=== PATIENT | male | born 1945 | race Caucasian/White ===

== ENCOUNTER → 2022-03-24 | Outpatient (CLI) | payer MEDICARE, OTHER, SELFPAY ==
--- NOTE | 2022-03-24 15:50 | MRI_ITS ---
STUDY: MR Spine Lumbar W/O Contrast 03/24/2022 7:11 PM REASON FOR EXAM: Male, 77 years old. Back pain pain TECHNIQUE: MR Spine Lumbar W/O Contrast Standardized fat and water weighted pulse sequences were obtained. COMPARISON: None FINDINGS: Cysts of both kidneys. No follow up required. Normal lumbar lordosis. There is no substantial scoliosis. Normal conus medullaris that terminates at the T12-L1. L1-2: Loss of intervertebral disc height. There is endplate spondylosis of the vertebral body. Normal central canal and intervertebral neuroforamina. There is bilateral facet arthropathy. Disc bulge. L2 superior endplate Schmorl''s node. L2-3: Loss of intervertebral disc height. There is endplate spondylosis of the vertebral body. Normal central canal and intervertebral neuroforamina. There is bilateral facet arthropathy. Disc bulge. L3-4: Loss of intervertebral disc height. There is endplate spondylosis of the vertebral body. Normal central canal and intervertebral neuroforamina. There is bilateral facet arthropathy. Disc bulge. L4-5: Loss of intervertebral disc height. There is endplate spondylosis of the vertebral body. Central disc herniation. Severe spinal stenosis. There is bilateral facet arthropathy. There is bilateral ligamentum flavum thickening. Disc desiccation. L5-S1: Loss of intervertebral disc height. There is endplate spondylosis of the vertebral body. There is bilateral facet arthropathy. Normal central canal and intervertebral neuroforamina. Normal visualized sacral ala. Normal visualized paraspinous soft tissue structures. MRI/Spine Lumbar (Routine) IMPRESSION: Multilevel degenerative changes, as described above. L4-5: Central disc herniation. Severe spinal stenosis. Electronically Signed: Ayan Araujo MD at 19:14 EDT Reading Location ID and State: [facility] / [place] , Service support ,
== END | disposition home or self-care (01) ==
LOC: MRI 15:50
PROVIDERS: PCP Family Medicine; Visit Provider Orthopaedic Surgery
DX: M51.36 Other intervertebral disc degeneration, lumbar region (principal)
CPT/HCPCS: 72148

== ENCOUNTER 2022-08-10 11:19 | Emergency (ER) | payer MEDICARE, OTHER, SELFPAY ==
[2022-08-10 11:20] VITALS: BP 124/108; PULSE 79; RESP 16; TEMP 36.2; O2SAT 98; BMI 23.6
--- NOTE | 2022-08-10 11:42 | EX.ED.DYSGE1 ---
HPI History of Present Illness Chief Complaint: Fall Informant: patient and spouse/S.O. Onset/Context/Timing Onset: Days (1 week ago) Current Severity: Mild Maximum Severity: Moderate Narrative Narrative: Patient presents secondary to hip pain after a fall 1 week ago. He has a history of Parkinson's. He leaned over to try to clean something up off the floor and lost his balance. He fell backwards. He is complaining of pain to his bilateral hips. He also complains of spasms in his low back. He did not strike his head. He had no loss of consciousness. He is on Eliquis. [facility] Medical History A-fib DDD (degenerative disc disease), lumbar Parkinson disease Spinal stenosis at L4-L5 level Home Medications apixaban 5 mg tablet (Eliquis) 5 tablet PO BID 03/23/22 [History Last Taken Unknown] carbidopa 25 mg-levodopa 100 mg tablet 2 ea PO TID 03/23/22 [History Last Taken Unknown] duloxetine 20 mg capsule,delayed release 30 cap PO DAILY 03/23/22 [History Last Taken Unknown] linaclotide 290 mcg capsule (Linzess) 290 mcg PO DAILY 03/23/22 [History Last Taken Unknown] memantine 10 mg tablet 10 tablet PO BID 03/23/22 [History Last Taken Unknown] tramadol 50 mg tablet 1 ea PO PRN PRN Pain 03/23/22 [History Last Taken Unknown] Lactobacillus acidophilus (Acidophilus capsule) 1,000 mmu cells PO DAILY 08/10/22 [History Last Taken Unknown] ascorbic acid (vitamin C) 100 mg tablet (Vitamin C) 100 mg PO DAILY 08/10/22 [History Last Taken Unknown] cholecalciferol (vitamin D3) 50 mcg (2,000 unit) capsule (Vitamin D3) 50 mcg PO DAILY 08/10/22 [History Last Taken Unknown] cyanocobalamin (vitamin B-12) 1,000 mcg tablet 1,000 mcg PO DAILY 08/10/22 [History Last Taken Unknown] lactulose 20 gram/30 mL oral solution 20 g PO DAILY 08/10/22 [History Last Taken Unknown] multivitamin 1 tab PO DAILY 08/10/22 [History Last Taken Unknown] omega-3 fatty acids 1,000 mg PO DAILY 08/10/22 [History Last Taken Unknown] Allergy/AdvReac Type Severity Reaction Status Date / Time red dye Allergy unknown Verified 08/10/22 11:22 Family History Mother Cancer Other Parkinsons Surgical History History of hip surgery Social History household members: spouse Smoking Status: Never smoker alcohol intake: current ROS ROS ED Constitutional Constitutional ED: Denies chills or fever(s) Eyes Eyes: Denies change in vision or discharge from eye(s) ENT ENT ED: Denies discharge from eye(s), rhinorrhea or sore throat Cardiovascular Cardiovascular: Denies chest pain or palpitations Respiratory/Chest Respiratory/Chest: Denies cough or dyspnea Gastrointestinal Gastrointestinal: Denies abdominal pain, diarrhea, nausea or vomiting Genitourinary Genitourinary ED: Denies dysuria Musculoskeletal Musculoskeletal: Reports back pain and extremity pain Integumentary Denies Abrasions or rash Neurologic Neurologic: Denies headache(s) or weakness Psychiatric Psychiatric: Denies anxiety or depression Allergic/Immunologic Allergic/Immunologic ED: Denies lip swelling or urticaria EXAM Physical Exam Const Vital Signs: 08/10/22 11:20 08/10/22 11:30 Temperature 97.2 F L Temperature Source Temporal Pulse Rate 79 Respiratory Rate 16 Respiratory Effort Normal Non-Labored Blood Pressure 124/108 H Blood Pressure Mean 113 Pulse Ox 98 Oxygen Delivery Method Room Air Positive well nourished and well developed General Appearance ED: well developed HEENT Reports normocephalic and head/scalp atraumatic Eyes PERRL and EOMs intact bilaterally Neck supple Chest Wall inspection of chest normal and palpation of chest normal Resp normal respiratory effort and clear to auscultation bilaterally Cardio regular rate and regular rhythm GI normal to inspection, nondistended, normoactive bowel sounds Palpation: soft Back/Spine Back/Spine Narrative: No midline thoracic or lumbar tenderness. There is reproducible tenderness in the lumbar paraspinal muscles bilaterally. No abrasions or ecchymosis noted. Extremity Extremity Narrative: Mild tenderness of patient bilateral hips. Equal leg lengths. No pain with logroll. Neuro oriented x3 and no sensory deficits noted Sensorium / Orientation: alert Psych mental status grossly normal Skin no rashes or lesions noted MDM MDM MDM Narrative Medical decision making narrative: Patient declined anything for pain while here. X-rays of the lumbar spine as well as pelvis and bilateral hips obtained. Radiography Diagnostic Testing: Clinical Impression(s) from Imaging Studies Hip/Pelvis X-Ray 08/10/22 11:55 IMPRESSION: Status post bilateral hip hemiarthroplasty with no acute fracture or dislocation. Electronically Signed: Yassine Ibrahim MD at 12:20 EDT Reading Location ID and State: [id number] / [employer] Tel , Service support , Lumbar Spine X-Ray 08/10/22 11:55 IMPRESSION: Degenerative changes of the spine, as detailed above. Electronically Signed: Yassine Ibrahim MD at 12:19 EDT Reading Location ID and State: [id number] / [employer] Tel , Service support , Treatment and Re-Evaluation Narrative: We will alsoX-rays per my interpretation reveal chronic arthritic changes. No acute fractures. Radiology interpretation is reviewed and agrees. Test results discussed with patient and at bedside. He has tramadol at home to use. Use topical lidocaine patches to help with his back pain. Return instructions given. Discharge Plan Triage Chief Complaint: Fall ED Provider: Pallavi Martin Dx/Rx/DC Orders Clinical Impression: Fall, Back strain, Contusion of hip Instructions: ED Back Sprain/Strain, ED Mechanical Fall, ED Hip Contusion Prescriptions: No Action memantine 10 mg tablet 10 tablet PO BID carbidopa-levodopa 25-100 mg tablet 2 ea PO TID Label Comments: TAKE 1.5 TABLETS ORALLY THREE TIMES A DAY 90 DAYS duloxetine 20 mg capsule,delayed release(DR/EC) 30 cap PO DAILY Eliquis 5 mg tablet 5 tablet PO BID Linzess 290 mcg capsule 290 mcg PO DAILY tramadol 50 mg tablet 1 ea PO PRN PRN (Reason: Pain) Label Comments: TAKE 1 TABLET EVERY 6 HOURS NEEDED FOR PAIN FOR UP TO 30 DAYS multivitamin Tablet 1 tab PO DAILY cyanocobalamin (vitamin B-12) 1,000 mcg Tablet 1,000 mcg PO DAILY Vitamin C 100 mg Tablet 100 mg PO DAILY Acidophilus Capsule 1,000 mmu cells PO DAILY Fish Oil Capsule 1,000 mg PO DAILY cholecalciferol (vitamin D3) [Vitamin D3] 50 mcg (2,000 unit) Capsule 50 mcg PO DAILY lactulose 20 gram/30 mL Solution 20 g PO DAILY Primary Care Provider: Rafa Valderrama Referrals: Rafa Valderrama DO [Primary Care Provider] - 1 Week if not improving Disposition Disposition: Home, Self Care
--- NOTE | 2022-08-10 11:55 | RAD_ITS ---
STUDY: X-RAY - LUMBAR SPINE REASON FOR EXAM: Male, 77 years old. fall, pain TECHNIQUE: 3 view(s) of the lumbar spine were obtained. COMPARISON: 03/23/2022 FINDINGS: Normal lumbar lordosis. There is no substantial scoliosis. There is a normal alignment of the vertebrae. There is multilevel endplate spondylosis of the lumbar vertebrae. There is multi-level degenerative disc disease with multi-level disc space narrowing. Facet hypertrophy in the lower lumbar spine. The soft tissue structures are unremarkable. RAD/Lumbar Spine 2 or 3 Views IMPRESSION: Degenerative changes of the spine, as detailed above. Electronically Signed: Yassine Ibrahim MD at 12:19 EDT ,
--- NOTE | 2022-08-10 11:55 | RAD_ITS ---
STUDY: X-RAY - PELVIS AND BILATERAL HIPS REASON FOR EXAM: Male, 77 years old. fall TECHNIQUE: AP view of the pelvis.? 2 views of the right hip, and 2 views of the left hip were obtained. COMPARISON: None. FINDINGS: There is a non-specific bowel gas pattern. Normal visualized soft tissue structures. Normal bilateral iliac wings, sacroiliac joints and visualized sacrum. Normal bilateral superior and inferior pubic rami. Normal pubic symphysis. Normal bilateral ischial tuberosities. Status post right hip hemiarthroplasty. The prosthesis appears located. No ostial lysis to suggest loosening.. Status post left hip hemiarthroplasty. The prosthesis appears located. No ostial lysis to suggest loosening. Heterotopic calcification laterally.. RAD/Hips B/L min 2 views w/ Pelvis IMPRESSION: Status post bilateral hip hemiarthroplasty with no acute fracture or dislocation. Electronically Signed: Yassine Ibrahim MD at 12:20 EDT ,
[2022-08-10 13:08] VITALS: BP 150/101; PULSE 80; RESP 16; O2SAT 97
== END 2022-08-10 13:09 | disposition home or self-care (01) ==
PROVIDERS: Emergency Provider Emergency Medicine; PCP Family Medicine; Visit Provider Emergency Medicine
DX: S39.012A Strain of muscle, fascia and tendon of lower back, initial encounter (principal); G20 Parkinson's disease; S70.01XA Contusion of right hip, initial encounter; S70.02XA Contusion of left hip, initial encounter; M62.830 Muscle spasm of back; W19.XXXA Unspecified fall, initial encounter; Z79.01 Long term (current) use of anticoagulants; Z79.899 Other long term (current) drug therapy
CPT/HCPCS: 72100; 73521; 99282

== ENCOUNTER → 2023-04-24 | Outpatient (CLI) | payer MEDICARE, OTHER, SELFPAY ==
--- NOTE | 2023-04-24 13:56 | ECHOD_ITS ---
Reason For Study: SOB Procedure This was a 2D Doppler, Color Flow transthoracic echocardiogram. Exam performed in department. Left Ventricle Normal LV size. Apical false tendon noted. Left ventricular systolic function is normal. The estimated ejection fraction is 65 %. The global longitudinal strain = -19.4 % (normal). Normal diastology for age. No regional wall motion abnormalities noted. Right Ventricle Normal RV size. Normal systolic function. Atria The left and right atria are normal. Mitral Valve The mitral valve is structurally normal. No prolapse or stenosis seen. Tricuspid Valve Normal tricuspid valve. Trivial tricuspid valve insufficiency. Unable to estimate RV systolic pressure due to insufficient tricuspid regurgitant envelope. Aortic Valve Trisinus/trileaflet aortic valve. There is no aortic stenosis. No aortic valve insufficiency. Pulmonic Valve Normal pulmonic valve. Great Vessels Normal aortic root. Pericardium/Pleural No pericardial effusion. MMode/2D Measurements & Calculations LVIDd: 3.9 cm IVSd: 1.1 cm Ao root diam: 3.4 cm LVIDs: 2.2 cm LVPWd: 1.1 cm RVDd: 3.2 cm FS: 44.2 % LAV(MOD-bp): 27.0 ml LVAd ap4: 25.9 cm2 LVAd ap2: 23.5 cm2 LAV(MOD-bp) Indexed: 13.9 ml/m2 LVLd ap4: 8.3 cm LVLd ap2: 8.0 cm LAV(MOD-sp2): 25.7 ml EDV(MOD-sp4): 66.2 ml EDV(MOD-sp2): 57.1 ml LAV(MOD-sp4): 24.1 ml EDV(sp4-el): 68.9 ml EDV(sp2-el): 58.4 ml LVAs ap4: 13.0 cm2 LVAs ap2: 12.1 cm2 LVLs ap4: 7.1 cm LVLs ap2: 6.6 cm ESV(MOD-sp4): 22.4 ml ESV(MOD-sp2): 19.9 ml ESV(sp4-el): 20.1 ml ESV(sp2-el): 18.7 ml EF(MOD-sp4): 66.2 % EF(MOD-sp2): 65.1 % EF(sp4-el): 70.8 % SV(MOD-sp4): 43.8 ml SV(MOD-sp2): 37.2 ml SV(sp4-el): 48.8 ml LA dimension(2D): 3.2 cm LA A4 area: 11.9 cm2 RA A4 area: 12.4 cm2 TAPSE: 2.1 cm Time Measurements MV dec time: 0.38 sec Doppler Measurements & Calculations MV E max hermes: 47.7 cm/sec Lat Peak E' Hermes: 9.7 cm/sec Med Peak E' Hermes: 9.3 cm/sec MV A max hermes: 74.3 cm/sec E/E' lat: 4.9 E/E' med: 5.1 MV E/A: 0.64 MV dec slope: 124.4 cm/sec2 Ao V2 max: 115.2 cm/sec LV V1 max: 96.2 cm/sec Ao max P.3 mmHg LV V1 max P.7 mmHg Ao V2 mean: 81.4 cm/sec LV V1 mean P.4 mmHg Ao mean P.0 mmHg LV V1 mean: 74.0 cm/sec Ao V2 VTI: 23.2 cm LV V1 VTI: 20.3 cm AV (velocity ratio): 0.87 PA V2 max: 108.6 cm/sec PA V2 mean: 72.0 cm/sec ECHO/Echo Complete Interpretation Summary The estimated ejection fraction is 65 %. Trivial tricuspid valve insufficiency. Ordering Physician: SHIRLEY HOOVER Referring Physician: Rafa Valderrama Performed By: Magdalene Knowles RDCS
== END | disposition home or self-care (01) ==
PROVIDERS: PCP Family Medicine
DX: R06.02 Shortness of breath (principal)
CPT/HCPCS: 93306